=== PATIENT | male | born 1950 | race Caucasian/White ===

== ENCOUNTER 2023-01-19 09:52 | Outpatient (CLI) | payer MEDICARE, SELFPAY ==
--- NOTE | 2023-01-19 10:13 | ECG_ITS ---
Measurements Intervals [place] Rate: 50 P: 35 AK: 169 QRS: 19 QRSD: 102 T: 30 QT: 405 QTc: 370 Interpretive Statements SINUS BRADYCARDIA OTHERWISE NORMAL ECG NO PREVIOUS ECG AVAILABLE FOR COMPARISON Electronically Signed On 01-19-2023 11:33:38 CDT by Narendra Alarcon M.D.
== END 2023-01-19 09:53 | disposition home or self-care (01) ==
LOC: ANHSURGERY 09:59
PROVIDERS: Visit Provider Urology
DX: N40.0 Benign prostatic hyperplasia without lower urinary tract symptoms (principal); I10 Essential (primary) hypertension; Z01.818 Encounter for other preprocedural examination
CPT/HCPCS: 87086; 93005

== ENCOUNTER 2023-01-25 04:04 | Day surgery (SDC) | payer MEDICARE, SELFPAY ==
[2023-01-17 15:08] VITALS: BMI 25.4
--- NOTE | 2023-01-17 15:34 | PC.NURSE ---
Report to the Outpatient Waiting Room, entrance under the green pavilion located off [facility], at time __6:00AM on date ___01/25/23____. Planned Procedure Time: _7:30AM . Time changes happen often and if your time is changed the preop area will call you the afternoon before. - You and your visitor will be asked to self-screen and do not enter if you have any COVID symptoms. - A mask is optional within the hospital at this time. Patients may have clear liquids (water, carbonated beverages, clear teas, apple juice) until 3 hours prior to surgery with a maximum of 20 ounces. - No food from midnight until time of surgery Take the following medications with a SIP of water the morning of surgery: ___METOPROLOL DO NOT STOP ANY OF YOUR OTHER PRESCRIPTION MEDICATIONS PRIOR TO SURGERY ?EXCEPT THE FOLLOWING Medications to discontinue per physician _HOLD ALL VITAMINS/SUPPLEMENTS 3 DAYS PRE-OP PER ANESTHESIA___ Date to take last dose____01/21/23 Please no make-up, nail micronesian, hairspray, perfume, deodorant, or body powder the day of surgery. No jewelry (including any body piercings) or valuables the day of surgery, leave them at home. Please take a shower or bath the night before, or the morning of, surgery with an antibacterial soap. Wear comfortable, loose fitting clothing. Children are encouraged to wear pajamas. - Jewelry must be removed prior to entering the operating room. Rings and piercings that are not removed may be cut off. - The hospital will not accept responsibility for valuables. - Please leave all valuables, including medications, at home the day of surgery. If you are going home after surgery, a licensed lifter driver must drive you home. - NO public transportation without another adult if you receive anesthesia. - We recommend that an adult stay with you for 24 hours following discharge. - We also recommend that you do not drive, make important decision, drink alcoholic beverages, or take any drugs that were not prescribed by your health care provider for at least 24 hours after your discharge time. Follow any additional instructions given to you from your surgeon. If you or anyone in your household have experienced Covid symptoms in the past week, please notify your surgeon or the nurse liaison at the phone number below for possible testing. Telephone instructions given to __PATIENT and asked if any additional questions and then verbalized understanding. Patient advised to call surgeon office or pre surgery nurse liaison [phone] if any additional questions.
[2023-01-25] VITALS (8 sets, daily range): BP systolic 130–167; BP diastolic 71–85; PULSE 42–64; RESP 9–20; TEMP 36.1–36.3; O2SAT 98–100
[2023-01-25] MEDS: LACTATED RINGERS 1,000 ML 30 ML IV CONT (06:28)
--- NOTE | 2023-01-25 07:29 | P.PNAN_ITS ---
Anes - Initial Pre Proc Eval Procedure: Operation Date: 01/25/23 07:30 Proposed Procedures p Urolift - Venkatesh Jose MD Date/Time: 01/25/23 07:29 Surgeon: Venkatesh Jose MD Pre Op Diagnosis: BPH Patient Data Age: 72 Gender: M Height: 1.75 m Weight: 80.7 kg Last Vital Signs Temp 97 F L 01/25/23 06:08 Pulse 64 01/25/23 06:08 Resp 16 01/25/23 06:08 BP 166/71 H 01/25/23 06:08 Pulse Ox 98 01/25/23 06:08 O2 Del Method Room Air 01/25/23 06:08 Allergies Allergy/AdvReac Type Severity Reaction Status Date / Time No Known Allergies Allergy Verified 01/17/23 15:02 Home Medications Medication Instructions Recorded Confirmed Type calcium 600 mg capsule 600 mg PO DAILY 01/17/23 01/17/23 History coenzyme Q10 100 mg capsule 100 mg PO DAILY 01/17/23 01/17/23 History (CoQ-10) finasteride 5 mg tablet 5 mg PO HS 01/17/23 01/17/23 History glucosamine 750 vf-wdvtijcetsr-hyv 1 tablet PO BID 01/17/23 01/17/23 History no1 644 mg-C 30 mg-sruthi 1 mg tablet (Osteo Bi-Flex Triple Strength) wpkfplyy-sburxg-qzeiw extract 5 6 cap PO DAILY 01/17/23 01/17/23 History mg-6 mg-150 mg capsule (Fruit and Vegetable Daily) metoprolol succinate 25 mg 25 mg PO QAM 01/17/23 01/17/23 History tablet,extended release 24 hr (Toprol XL) ztdfdyku-le-nvlhe 300 mcg-K 60 1 tablet PO DAILY 01/17/23 01/17/23 History mcg-lycop 600 mcg-lutein 300 mcg tablet (Centrum Silver Men) simvastatin 10 mg tablet 10 mg PO HS 01/17/23 01/17/23 History tamsulosin 0.4 mg capsule 0.4 mg PO HS 01/17/23 01/17/23 History Patient hx anesthesia problems: none Family hx anesthesia problems: none Results Review: All pre-operative results and documents have been reviewed as part of the pre- operative evaluation. [facility] Social History Social History Smoking status: Never smoker Alcohol intake: current Drinks per week: 8 Substance use: never Living arrangements: alone Spiritual care concerns: No Anes - Eval Final PreProcedure Day of Procedure 01/25/23 07:29 Patient weight: normal Heart: regular rate and rhythm Lungs: clear to auscultation Airway: Mallampati scale class II Neurological: alert and oriented Last oral intake: >/= 8 hours ASA classification: II Emergent: no Anesthetic plan: proceed Anesthesia type and monitoring: general LMA and standard monitoring Results Review: All pre-operative results and documents have been reviewed as part of the pre- operative evaluation. Informed Consent: The patient's anesthetic plan and its attendant risks and benefits were discussed with the patient/family/POA. Questions were solicited and answers provided to the satisfaction of the patient/family/POA.
--- NOTE | 2023-01-25 07:32 | WPDHPUPDATE1 ---
History and Physical Update Update Date/Time: 01/25/23 07:32 History and Physical has been reviewed, including an updated exam of the patient. There are NO changes in the patient's condition. Risks, benefits, and alternatives have been discussed and questions answered. Patient agrees to proceed with procedure. Proceed with urolift
[2023-01-25] MEDS: ceFAZolin 2 GM/D5W 50 ML 2 GM/50 ML BAG IVPB (07:42)
[2023-01-25] MEDS: LIDOCAINE HCL 2% GEL UROJET 10 ML PKG MUCOUS MEM (08:02)
--- NOTE | 2023-01-25 08:14 | W.PM.PROC2 ---
Procedure Note - Detailed Date of Procedure 01/25/23 Pre-op Diagnosis BPH Post-op Diagnosis Same Procedure Performed UROLIFT 4 CANDELARIA WITH CYSTOSCOPY Surgeon Venkatesh Jose MD Anesthesia General Description of Procedure Patient is taken to the operative suite correctly identified. Once anesthesia was obtained was placed in dorsal lithotomy position and prepped draped usual sterile fashion. Urolift scope was inserted in the bladder. He has some lateral lobe hypertrophy. The bladder itself was without any tumors. Candelaria were placed at the 2 and 10:00 a.m. positions. These were placed at the level distal to the bladder neck and proximal to the verumontanum. The prostatic fossa appeared open. There was minimal bleeding at this time. 2% viscous lidocaine was inserted into the urethra patient is taken recovery stable condition. Please send a copy of this op note to my office Estimated Blood Loss 0 Drains No Packing No Pathology None sent Complications No immediate complications Condition Stable Disposition PACU
--- NOTE | 2023-01-25 10:04 | SUR.PHASEII ---
0931: Patient's IV dc'd with catheter intact. Patient dressed and waiting on ride to arrive.
== END 2023-01-25 10:05 | disposition home or self-care (01) ==
PROVIDERS: Visit Provider Urology
PROC: 0T7D8DZ Dilation of Urethra with Intraluminal Device, Via Natural or Artificial Opening Endoscopic (ICD-10-PCS; CPT 52441; principal; 2023-01-25 07:30)
DX: N40.1 Benign prostatic hyperplasia with lower urinary tract symptoms (principal); R39.12 Poor urinary stream; R35.0 Frequency of micturition
CPT/HCPCS: C9740; 87086; 93005; J0690; J2405; J2704; J3010; J7120; L8699